=== PATIENT | male | born 1990 ===

== ENCOUNTER 2018-03-17 18:46 | Emergency (ER) | payer OTHER ==
[2018-03-17 19:00] VITALS: BP 136/82; PULSE 81; RESP 16; TEMP 97.8; O2SAT 98
--- NOTE | 2018-03-17 20:16 | C.PDOC ---
History Of Present Illness 27 y/o male presents to the ED complaining of 3 days of rash to the left side of trunk. He reports he area is burning and itchy. He denies any fever, cough, or SOB. Patient has no other complaints. Denies recent outdoor activities or change in lotions/soaps. Time Seen by Provider: 03/17/18 19:01 Chief Complaint (Nursing): Abnormal Skin Integrity History Per: Patient History/Exam Limitations: no limitations Onset/Duration Of Symptoms: Days (x3) Current Symptoms Are (Timing): Still Present Past Medical History Reviewed: Historical Data, Nursing Documentation, Vital Signs Vital Signs: Last Vital Signs Temp 97.8 F 03/17/18 18:56 Pulse 81 03/17/18 18:56 Resp 16 03/17/18 18:56 BP 136/82 03/17/18 18:56 Pulse Ox 98 03/17/18 18:56 - Medical History PMH: No Chronic Diseases Family History: States: Unknown Family Hx - Social History Hx Tobacco Use: No Hx Alcohol Use: No Hx Substance Use: No - Immunization History Hx Tetanus Toxoid Vaccination: No Hx Influenza Vaccination: No Hx Pneumococcal Vaccination: No Review Of Systems Except As Marked, All Systems Reviewed And Found Negative. Constitutional: Negative for: Fever, Chills Respiratory: Negative for: Cough, Shortness of Breath Skin: Positive for: Rash Physical Exam - Physical Exam Appears: Well, Non-toxic, No Acute Distress Skin: Warm, Dry, Rash (Clusters of vesicles on erythematous base to left chest wall and back, not crossing midline, consistent w/ shingles) Eye(s): bilateral: Normal Inspection Neck: Normal ROM Chest: Symmetrical, No Deformity Cardiovascular: Rhythm Regular Respiratory: Normal Breath Sounds, No Rales, No Rhonchi, No Wheezing Pulses: Left Radial: Normal, Right Radial: Normal Neurological/Psych: Oriented x3, Normal Speech ED Course And Treatment O2 Sat by Pulse Oximetry: 98 (RA) Pulse Ox Interpretation: Normal Progress Note: Patient counseled regarding diagnosis and treatment plan. Will d/c patient with Rx for Acyclovir. Given initial dose in the ED. Disposition - Disposition Referrals: [facility] [Outside] Disposition: HOME/ ROUTINE Disposition Time: 20:14 Condition: STABLE Additional Instructions: Follow up with PMD/Clinic within 1-2 days. Return to ED if feel worse. 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 - Scribe Statement The provider has reviewed the documentation as recorded by the Scribarmaan Majano All medical record entries made by the [place]ibe were at my direction and personally dictated by me. I have reviewed the chart and agree that the record accurately reflects my personal performance of the history, physical exam, medical decision making, and the department course for this patient. I have also personally directed, reviewed, and agree with the discharge instructions and disposition.
== END 2018-03-17 20:57 | disposition home or self-care (01) ==
LOC: C.ER 18:46
DX: B02.9 Zoster without complications (principal)